=== PATIENT | female | born 1990 | race Caucasian/White ===

== ENCOUNTER 2017-07-02 01:53 | Emergency (ER) | payer OTHER, MEDICAID ==
[~2017-07-02] VITALS: Ht 167.6 cm; Wt 70.0 kg
[~2017-07-02 01:53] MED LIST: TAB-TAB PO; Z.0.BCPILL PO
[2017-07-02 02:04] VITALS: BP 140/87; PULSE 120; RESP 26; TEMP 98.5; O2SAT 100
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
[2017-07-02] MEDS ORDERED: SODIUM CHLOR 0.9% 1000 ML INJ 1,000 ML IV ONE (02:15)
[2017-07-02] MEDS ORDERED: MORPHINE SULFATE 4 MG/ML INJ IV PUSH ONE (02:15)
[2017-07-02] MEDS ORDERED: ONDANSETRON HCL 4 MG/2 ML VIAL IV PUSH ONE (02:15)
[2017-07-02 02:37] LABS: AUTOMATED NEUTROPHIL # 4.2 TH/MM3 (1.8-7.7); BASOPHIL % 0.5 % (0.0-2.0); EOSINOPHIL % 0.3 % (0.0-4.0); HEMO FLAGS DIFF FINAL; LYMPH % 40.2 % (9.0-44.0); LYMPHOCYTE # 3.1 TH/MM3 (1.0-4.8); MEAN CELL VOLUME 90.3 FL (80.0-100.0); MEAN CORPUSCULAR HEMOGLOBIN 31.6 PG (27.0-34.0); MONO % 5.3 % (0.0-8.0); NEUT % 53.7 % (16.0-70.0); PLATELET COUNT 350 TH/MM3 (150-450); RED CELL DISTRIBUTION WIDTH 12.3 % (11.6-17.2); WHITE BLOOD COUNT 7.8 TH/MM3 (4.0-11.0)
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
[2017-07-02 03:06] VITALS: RESP 16
[2017-07-02 03:09] LABS: BICARBONATE 24.8 MEQ/L (21.0-32.0); POTASSIUM 3.3 MEQ/L (3.5-5.1)
[2017-07-02] MEDS ORDERED: POTASSIUM CHLORIDE 20 MEQ CONTROLLED RELEASE TAB PO ONE (03:30)
[2017-07-02] MEDS ORDERED: KETOROLAC TROMETHAMINE 30 MG/ML (IVP) VIAL IV PUSH ONE (03:30)
[2017-07-02] MEDS ORDERED: NORC5TAB PO (03:55)
[2017-07-02] MEDS ORDERED: IBUP-232 PO (03:55)
[2017-07-02 04:17] VITALS: BP 122/78
== END 2017-07-02 04:19 | disposition home or self-care (01) ==
LOC: NEPE 01:53
DX: S02.2XXA Fracture of nasal bones, initial encounter for closed fracture (principal); F10.920 Alcohol use, unspecified with intoxication, uncomplicated; V47.6XXA Car passenger injured in collision with fixed or stationary object in traffic accident, initial encounter; Z72.0 Tobacco use
CPT/HCPCS: 70450; 70486; 72125; 80048; 80307; 85025; 96361; 96374; 96375; 99285; J1885; J2270; J2405; J7030